=== PATIENT | female | born 1980 | race Caucasian/White ===

== ENCOUNTER 2017-10-13 15:36 | Emergency (ER) | payer OTHER ==
[~2017-10-13] VITALS: Ht 157.5 cm; Wt 54.4 kg
--- NOTE | 2017-10-13 16:07 | NUR ---
Pt c/o congestion, cough, fever, slight dizziness x 5 days, not improving; LS = and clear. Pt denies CP, SOB, n/v, no other complaints, no distress noted.
[2017-10-13] MEDS ORDERED: CEFTRIAXONE 2 G in IV DEXTROSE 5% 100 ML IV ONE (17:00)
[2017-10-13] MEDS ORDERED: IV NORMAL SALINE 1000 ML BAG IV ONE (17:00)
[2017-10-13] MEDS ORDERED: IBUPROFEN 600 MG TABLET PO ONE (17:00)
[2017-10-13] MEDS ORDERED: IBUPROFEN 600 MG TABLET ONE (17:28)
[2017-10-13] MEDS ORDERED: CEFTRIAXONE 1 G VIAL ONE (17:28)
--- NOTE | 2017-10-13 18:54 | NUR ---
Removed IV intact, site okay, bandaged. Gave pt RX and d/c instructions, verbalized understanding.
== END 2017-10-13 18:56 | disposition home or self-care (01) ==
LOC: ER 15:37
DX: J40 Bronchitis, not specified as acute or chronic (principal)
CPT/HCPCS: 71010; 96365; 99284; A4663; J0696; J7030; J7060